=== PATIENT | male | born 1990 | race Two or more races ===

== ENCOUNTER 2019-08-11 04:55 | Emergency (ER) | payer OTHER ==
[~2019-08-11] VITALS: Ht 172.7 cm; Wt 90.3 kg
[2019-08-11 04:55] VITALS: BP 150/70
--- NOTE | 2019-08-11 04:55 | NUR ---
NBA FROM AN [place]; GEN WEAKNESS AFTER TAKING "FENTANYL X 1DAY AGO" FEELS HIS LEGS DOESNT WORK; PT TO BED 10, AWAKE, ALERT, -SOB, VSS, AWAITING ER PROVIDER GLORIA
--- NOTE | 2019-08-11 05:20 | NUR ---
ER DOCTOR AT BEDSIDE FOR EVAL
--- NOTE | 2019-08-11 07:03 | NUR ---
Patient is ambulatory with a steady gait.
--- NOTE | 2019-08-11 07:04 | NUR ---
Patient discharged to home in stable condition. Written and verbal after care instructions given. Patient verbalizes understanding of instruction.
== END 2019-08-11 07:05 | disposition home or self-care (01) ==
LOC: ER 04:58
DX: F11.90 Opioid use, unspecified, uncomplicated (principal); J45.909 Unspecified asthma, uncomplicated